=== PATIENT | female | born 1995 | race Caucasian/White ===

== ENCOUNTER → 2021-08-27 18:15 | Observation (INO) ==
[2021-08-27 16:07] LABS: Basophils % 0.4 %; Eosinophils % 0.3 %; Hematocrit 36.6 % (35.3-44.9); Hemoglobin 12.7 g/dL (11.5-15.4); Immature Granulocytes % 1.9 % (0-4); Lymphocytes # 1.5 K/mcL (0.6-4.6); Lymphocytes % 14.5 %; Mean Corpuscular HGB Conc 34.7 g/dL (31.6-35.5); Mean Corpuscular Volume 92.2 fL (83.0-100.0); Mean Platelet Volume 10.9 fL (9.4-12.4); Monocytes # 0.6 K/mcL (0.0-1.3); Monocytes % 5.9 %; Platelet Count 172 K/mcL (140-400); Red Blood Count 3.97 M/mcL (3.82-4.97); Red Cell Distribution Width 12.2 % (11.5-14.5); White Blood Count 10.3 K/mcL (4.3-11.1)
[2021-08-27 16:16] LABS: Protein/Creatinine Ratio,Urine 0.15 mg/mg (0.00-0.20)
[2021-08-27 16:25] LABS: Alanine Aminotransferase 12 Units/L (7-52); Aspartate Amino Transferase 22 Units/L (13-39); BUN/Creatinine Ratio 9 (6-26); Blood Urea Nitrogen 5 mg/dL (6-20); Lactate Dehydrogenase 149 Units/L (140-271); Uric Acid 3.7 mg/dL (2.3-7.6); eGFR For African Americans > 60 (> 60); eGFR For Non-African Americans > 60 (> 60)
== END | disposition home or self-care (01) ==
LOC: 1NENULAB
PROVIDERS: ADMIT Obstetrics & Gynecology; ATTEND Obstetrics & Gynecology

== ENCOUNTER 2021-09-02 18:08 | Inpatient (IN) ==
[2021-09-02] MEDS ORDERED: Famotidine 20 MG/2 ML VIAL IVP PRN (20:33)
[2021-09-02] MEDS ORDERED: Azithromycin 500 MG in 0.9 % Sodium Chloride 250 ML IVPB PRN (20:33)
[2021-09-02] MEDS ORDERED: Metoclopramide 10 MG/2 ML VIAL IVP PRN (20:33)
[2021-09-02] MEDS ORDERED: Naloxone 0.4 MG/ML INJ IVP PRN (20:33)
[2021-09-02] MEDS ORDERED: Lidocaine 1% 20 ML MDV INFILT PRN (20:33)
[2021-09-02] MEDS ORDERED: *HR* FentaNYL (PF) 100 MCG/2 ML VIAL IVP PRN (20:33)
[2021-09-02] MEDS ORDERED: Ondansetron 4 MG/2 ML VIAL IVP PRN (20:33)
[2021-09-02] MEDS ORDERED: Ringers Solution, Lactated 1,000 ML IVC SCH (20:45)
[2021-09-02 21:39] LABS: Basophils # 0.1 K/mcL (0.0-0.2); Basophils % 0.3 %; Eosinophils % 0.1 %; Hematocrit 39.7 % (35.3-44.9); Hemoglobin 14.2 g/dL (11.5-15.4); Immature Granulocytes % 1.5 % (0-4); Lymphocytes # 1.3 K/mcL (0.6-4.6); Lymphocytes % 8.1 %; Mean Corpuscular HGB Conc 35.8 g/dL (31.6-35.5); Mean Corpuscular Hemoglobin 32.7 pg (28.0-33.3); Mean Corpuscular Volume 91.5 fL (83.0-100.0); Mean Platelet Volume 11.4 fL (9.4-12.4); Monocytes # 0.7 K/mcL (0.0-1.3); Monocytes % 4.6 %; Platelet Count 173 K/mcL (140-400); Red Blood Count 4.34 M/mcL (3.82-4.97); Red Cell Distribution Width 12.4 % (11.5-14.5); Segmented Neutrophils % 85.4 %
[2021-09-02 21:40] LABS: Amphetamine Screen,Urine Negative ng/mL (Cutoff=1000); Barbiturate Screen,Urine Negative ng/mL (Cutoff=200); Benzodiazepines Screen,Urine Negative ng/mL (Cutoff=200); Cannabinoid Screen,Urine Negative ng/mL (Cutoff = 50); Cocaine Screen,Urine Negative ng/mL (Cutoff= 300); Opiate Screen,Urine Negative ng/mL (Cutoff=300); Phencyclidine Screen,Urine Negative ng/mL (Cutoff=25)
[2021-09-02 21:49] LABS: Neutrophils # 13.8 K/mcL (1.6-8.9); White Blood Count 16.1 K/mcL (4.3-11.1)
[2021-09-02 22:17] LABS: Influenza A PCR Negative (Negative); Influenza B PCR Negative (Negative); Resp. Syncytial Virus PCR Negative (Negative); SARS-CoV-2 by PCR (In House) Negative (Negative)
[2021-09-02] MEDS: *HR* Nalbuphine 10 MG/ML AMPUL IV PRN (22:38)
[2021-09-02] MEDS ORDERED: Ropivacaine/PF 0.2% 20 ML VIAL EP ONE (23:18)
[2021-09-02] MEDS ORDERED: EPHEDrine 50 MG/ML VIAL IVP PRN (23:18)
[2021-09-02] MEDS ORDERED: *HR* FentaNYL (PF) 100 MCG/2 ML VIAL EP ONE (23:18)
[2021-09-02] MEDS ORDERED: Epidural Premix (fent/bupiv) 110 ML EP SCH (23:30)
[2021-09-03] MEDS: *HR* Nalbuphine 10 MG/ML AMPUL IV PRN (01:40)
[2021-09-03] MEDS ORDERED: Oxytocin 30 UNIT/503 ML BAG IVC ONE (07:21)
[2021-09-03] MEDS ORDERED: Rho Immune Globulin 1,500 UNIT SYRINGE IM PRN (10:21)
[2021-09-03] MEDS ORDERED: Lanolin 7 G OINT...G. TP PRN (10:21)
[2021-09-03] MEDS ORDERED: Measles/Mumps/Rubella Vacc 0.5 ML VIAL SQ PRN (10:21)
[2021-09-03] MEDS ORDERED: Benzocaine/Menthol 56 GM AEROSOL SPRAY TP PRN (10:21)
[2021-09-03] MEDS ORDERED: Prenatal Vit/FA 1 EACH TABLET PO SCH (10:21)
[2021-09-03] MEDS ORDERED: Ondansetron ODT 4 MG TAB.RAPDIS SL PRN (10:21)
[2021-09-03] MEDS ORDERED: Oxytocin 30 UNIT/503 ML BAG IVC SCH (10:21)
[2021-09-03] MEDS: Ibuprofen 600 MG TABLET PO SCH (12:20)
[2021-09-03] MEDS: Acetaminophen 325 MG TABLET PO SCH (21:36)
[2021-09-04] MEDS: Ibuprofen 600 MG TABLET PO SCH (01:04)
[2021-09-04] MEDS: Acetaminophen 325 MG TABLET PO SCH ×2 (03:29→11:18)
[2021-09-04 03:42] VITALS: PULSE 86
[2021-09-04 04:59] LABS: Basophils % 0.2 %; Eosinophils % 0.2 %; Hematocrit 31.9 % (35.3-44.9); Hemoglobin 10.8 g/dL (11.5-15.4); Immature Granulocytes % 1.5 % (0-4); Lymphocytes # 2.4 K/mcL (0.6-4.6); Lymphocytes % 14.3 %; Mean Corpuscular HGB Conc 33.9 g/dL (31.6-35.5); Mean Corpuscular Hemoglobin 31.8 pg (28.0-33.3); Mean Corpuscular Volume 93.8 fL (83.0-100.0); Mean Platelet Volume 11.1 fL (9.4-12.4); Monocytes # 1.3 K/mcL (0.0-1.3); Monocytes % 8.1 %; Neutrophils # 12.4 K/mcL (1.6-8.9); Platelet Count 164 K/mcL (140-400); Red Cell Distribution Width 12.9 % (11.5-14.5); Segmented Neutrophils % 75.7 %; White Blood Count 16.4 K/mcL (4.3-11.1)
[2021-09-04 07:34] VITALS: BP 109/68; TEMP 98; O2SAT 97
== END 2021-09-04 12:05 | disposition home or self-care (01) | DRG 806 ==
LOC: 1NENULAB → 1NENUOBS 09-03 11:11
PROVIDERS: ADMIT Obstetrics & Gynecology; ATTEND Obstetrics & Gynecology